=== PATIENT | female | born 1990 | race Hispanic/Latino ===

== ENCOUNTER 2018-02-21 12:06 | Emergency (ER) | payer BC, SELFPAY ==
[2018-02-21] MEDS ORDERED: ONDANSETRON 4 MG/2 ML VIAL ONE (12:53)
[2018-02-21 12:59] LABS: Absolute Lymphocytes (CBC) 1.3 K/uL (0.7-4.9); Absolute Monocytes 0.8 K/uL (0.1-1.3); Absolute Neutrophil 4.7 K/uL (1.8-8.0); Basophils % 0.6 % (0-1.3); Eosinophils % 2.8 % (0-4.4); Lymphocytes % 18.8 % (15.3-44.8); MCH 30.7 pg (27.0-35.0); MCV 89.5 fL (80-100); MPV 8.5 fL (7.6-11.3); RBC Red Blood Cell Count 4.47 M/uL (3.86-4.86)
[2018-02-21 13:16] LABS: ALT/SGPT 20 U/L (12-78); AST/SGOT 15 U/L (15-37); Albumin 3.6 g/dL (3.4-5.0); Alkaline Phosphatase 88 U/L (45-117); BUN Blood Urea Nitrogen 10 mg/dL (7-18); Bicarbonate 26 mmol/L (21-32); Bilirubin Direct 0.1 mg/dL (0-0.2); Bilirubin Total 0.3 mg/dL (0.2-1.0); Glucose Level 82 mg/dL (74-106); Lipase 108 U/L (73-393); Potassium 3.8 mmol/L (3.5-5.1); Protein, Total 7.7 g/dL (6.4-8.2); Sodium Level 140 mmol/L (136-145)
[2018-02-21 13:20] LABS: Urine Blood TRACE (NEG); Urine Glucose NEGATIVE (NEG); Urine Protein NEGATIVE (NEG); Urine Specific Gravity 1.015 (1.005-1.030)
--- NOTE | 2018-02-21 13:51 | ER ---
Nurse's Notes [facility] Name: Suni Field Age: 27 yrs Sex: Female : 1990 Arrival Date: 02/21/2018 Time: 12:07 Bed 25 Private MD: None, None Diagnosis: Vomiting Presentation: 02/21 12:11 Presenting complaint: Patient states: "Yesterday morning I woke up with body aches, aj1 nausea, I started vomiting this morning, fever of 101. I took Trent Back and Body this morning." Reports feeling bloated. Transition of care: patient was not received from another setting of care. Onset of symptoms was February 20, 2018. Risk Assessment: Do you want to hurt yourself or someone else? Patient reports no desire to harm self or others. Initial Sepsis Screen: Does the patient meet any 2 criteria? No. Patient's initial sepsis screen is negative. Does the patient have a suspected source of infection? No. Patient's initial sepsis screen is negative. Care prior to arrival: None. 12:11 Method Of Arrival: Ambulatory [facility] 12:11 Acuity: MARIA ISABEL 4 aj1 Triage Assessment: 12:16 General: Appears in no apparent distress. comfortable, Behavior is calm, cooperative, aj1 appropriate for age. Pain: Pain currently is 3 out of 10 on a pain scale. Neuro: Level of Consciousness is awake, alert, obeys commands. Cardiovascular: Patient's skin is warm and dry. Respiratory: Airway is patent Respiratory effort is even, unlabored, Respiratory pattern is regular, symmetrical. GI: Reports nausea, vomiting. 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 - Social history:: Smoking status: Patient/guardian denies using tobacco. - Ebola Screening: : Patient denies travel to an Ebola-affected area in the 21 days before illness onset. - Family history:: not pertinent. - Hospitalizations: : No recent hospitalization is reported. Screenin:30 Abuse screen: Denies threats or abuse. Nutritional screening: No deficits noted. tw2 Tuberculosis screening: No symptoms or risk factors identified. Fall Risk None identified. Assessment: 12:25 General: Appears in no apparent distress. well groomed, Behavior is calm, cooperative, tw2 appropriate for age. Neuro: Level of Consciousness is awake, alert, obeys commands, Oriented to person, place, time, situation. Cardiovascular: Denies chest pain, shortness of breath, Heart tones S1 S2 Patient's skin is warm and dry. Respiratory: Airway is patent Respiratory effort is even, unlabored, Respiratory pattern is regular, symmetrical, Breath sounds are clear bilaterally. GI: Abdomen is flat, Bowel sounds present X 4 quads. Reports nausea. GI: Patient currently denies abdominal pain. : No signs and/or symptoms were reported regarding the genitourinary system. EENT: No signs and/or symptoms were reported regarding the EENT system. Derm: No signs and/or symptoms reported regarding the dermatologic system. Musculoskeletal: No signs and/or symptoms reported regarding the musculoskeletal system. Range of motion: intact in all extremities. 12:25 GI: Reports indigestion. tw2 14:06 Reassessment: Patient appears in no apparent distress at this time. Patient and/or tw2 family updated on plan of care and expected duration. Pain level reassessed. Patient is alert, oriented x 3, equal unlabored respirations, skin warm/dry/pink. Patient states feeling better. Patient states symptoms have improved. Vital Signs: 12:16 BP 106 / 83; Pulse 84; Resp 18; Temp 97.1; Pulse Ox 99% on R/A; Weight 62.6 kg (R); aj1 Height 5 ft. 4 in. (162.56 cm) (R); Pain 3/10; 14:05 BP 106 / 67; Pulse 88; Resp 17; Pulse Ox 99% on R/A; tw2 12:16 Body Mass Index 23.69 (62.60 kg, 162.56 cm) aj1 ED Course: 12:07 Patient arrived in ED. sb2 12:08 None, None is Private Physician. sb2 12:16 Triage completed. aj1 12:16 Arm band placed on Patient placed in an exam room. aj1 12:23 Zaid Ludwig MD is Attending Physician. rn 12:30 Haritha Caceres RN is Primary Nurse. tw2 12:30 Bed in low position. Call light in reach. Pulse ox on. NIBP on. tw2 12:50 Inserted saline lock: 20 gauge in left antecubital area, using aseptic technique. Blood jp3 collected. 12:50 Initial lab(s) drawn, by me, sent to lab. Urine collected: clean catch specimen, clear, jp3 jonathon colored, Amount Voided: 80mL Flu and/or RSV swab sent to lab. Strep swab sent to lab. 12:54 [place] Screen Profile Sent. jp3 12:54 Urine --Ancillary (enter results) Sent. jp3 12:54 Urine Dipstick--Ancillary (enter results) Sent. jp3 12:54 Strep Sent. jp3 12:54 Flu Sent. jp3 12:54 Basic Metabolic Panel Sent. jp3 12:54 CBC with Diff Sent. jp3 12:54 Hepatic Function Sent. jp3 12:54 Lipase Sent. jp3 14:03 IV discontinued, intact, bleeding controlled, No redness/swelling at site. Pressure jp3 dressing applied. 14:06 No provider procedures requiring assistance completed. tw2 14:07 IV discontinued, per Mica Farmer. tw2 Administered Medications: 12:50 Drug: Zofran 4 mg Route: IVP; Site: left antecubital; tw2 14:06 Follow up: Response: No adverse reaction; Nausea is decreased tw2 Outcome: 13:50 Discharge ordered by . rn 14:06 Discharged to home ambulatory. tw2 14:06 Condition: stable 14:06 Discharge instructions given to patient, Instructed on discharge instructions, follow up and referral plans. medication usage, Demonstrated understanding of instructions, follow-up care, medications, Prescriptions given X 1. 14:07 Patient left the ED. tw2 Signatures: Kamila Jacobsen, RN RN aj1 Zaid Ludwig MD MD rn Wise, Tara, RN RN tw2 Leigh Espana Jacob jp3
--- NOTE | 2018-02-21 13:51 | EDPHYS ---
Physician Documentation [facility] Name: Suni Field Age: 27 yrs Sex: Female : 1990 Arrival Date: 02/21/2018 Time: 12:07 Bed 25 Private MD: None, None ED Physician Zaid Ludwig HPI: 02/21 13:46 This 27 yrs old Female presents to ER via Ambulatory with complaints of Fever, rn Nausea/Vomiting. 13:46 The patient reports fever, not measured (subjective). Onset: The symptoms/episode rn began/occurred 1 day(s) ago. Modifying factors: there are no obvious modifying factors. Associated signs and symptoms: Pertinent positives: myalgias, nausea, vomiting. Severity of symptoms: At their worst the symptoms were mild in the emergency department the symptoms have improved. The patient has not experienced similar symptoms in the past. Reports subjective fever, myalgias, fatigue, nausea, 1 episode of vomiting, no diarrhea, + abd cramping. NO cough/sob. . 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 - Social history:: Smoking status: Patient/guardian denies using tobacco. - Ebola Screening: : Patient denies travel to an Ebola-affected area in the 21 days before illness onset. - Family history:: not pertinent. - Hospitalizations: : No recent hospitalization is reported. 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 Exam: 13:46 Constitutional: This is a well developed, well nourished patient who is awake, alert, rn and in no acute distress. Head/Face: Normocephalic, atraumatic. Eyes: Pupils equal round and reactive to light, extra-ocular motions intact. Lids and lashes normal. Conjunctiva and sclera are non-icteric and not injected. Cornea within normal limits. Periorbital areas with no swelling, redness, or edema. ENT: Nares patent. No nasal discharge, no septal abnormalities noted. Oropharynx with no redness, swelling, or masses, exudates, or evidence of obstruction, uvula midline. Mucous membranes moist. Cardiovascular: Regular rate and rhythm with a normal S1 and S2. No pulse deficits. Respiratory: Lungs have equal breath sounds bilaterally, clear to auscultation. No increased work of breathing, no retractions or nasal flaring. Abdomen/GI: soft, non-tender, no rebound/guarding Skin: Warm, dry with normal turgor. Normal color with no rashes, no lesions, and no evidence of cellulitis. MS/ Extremity: Pulses equal, no cyanosis. Neurovascular intact. Full, normal range of motion. Equal circumference. Neuro: Awake and alert, GCS 15, oriented to person, place, time, and situation. Cranial nerves II-XII grossly intact. Motor strength 5/5 in all extremities. Sensory grossly intact. Cerebellar exam normal. Normal gait. Vital Signs: 12:16 BP 106 / 83; Pulse 84; Resp 18; Temp 97.1; Pulse Ox 99% on R/A; Weight 62.6 kg (R); aj1 Height 5 ft. 4 in. (162.56 cm) (R); Pain 3/10; 14:05 BP 106 / 67; Pulse 88; Resp 17; Pulse Ox 99% on R/A; tw2 12:16 Body Mass Index 23.69 (62.60 kg, 162.56 cm) aj1 MDM: 12:24 Patient medically screened. rn 13:46 Differential diagnosis: viral Infection, bacterial infection, URI, UTI, rn gastroenteritis. Data reviewed: vital signs, nurses notes, lab test result(s), and as a result, I will discharge patient. Counseling: I had a detailed discussion with the patient and/or guardian regarding: the historical points, exam findings, and any diagnostic results supporting the discharge/admit diagnosis, lab results, the need for outpatient follow up, to return to the emergency department if symptoms worsen or persist or if there are any questions or concerns that arise at home. Response to treatment: the patient's symptoms have markedly improved after treatment, and as a result, I will discharge patient. Special discussion: I discussed with the patient/guardian in detail that at this point there is no indication for admission to the hospital. It is understood, however, that if the symptoms persist or worsen the patient needs to return immediately for re-evaluation. ED course: Neg w/u here, most likely viral syndrome or enteritis, will dc home as abd exam benign, normal WBC, and no other etiology found, will dc with zofran and return precautions.. 02/21 12:35 Order name: Basic Metabolic Panel; Complete Time: 13:18 rn 02/21 12:35 Order name: CBC with Diff; Complete Time: 13:18 rn 02/21 12:35 Order name: Hepatic Function; Complete Time: 13:18 rn 02/21 12:35 Order name: Lipase; Complete Time: 13:18 rn 02/21 12:35 Order name: Flu; Complete Time: 13:42 rn 02/21 12:35 Order name: Strep; Complete Time: 13:42 rn 02/21 12:35 Order name: IV Saline Lock; Complete Time: 12:43 rn 02/21 12:35 Order name: Labs collected and sent; Complete Time: 12:44 rn 02/21 12:35 Order name: Urine Test (obtain specimen); Complete Time: 12:54 rn 02/21 12:38 Order name: Urine Dipstick--Ancillary (enter results); Complete Time: 13:42 bd 02/21 12:38 Order name: Urine --Ancillary (enter results); Complete Time: 13:42 bd 02/21 12:45 Order name: [place] Screen Profile; Complete Time: 13:42 rn 02/21 13:21 Order name: Throat Culture EDND 02/21 12:35 Order name: Urine Dipstick-Ancillary (obtain specimen); Complete Time: 12:54 rn Administered Medications: 12:50 Drug: Zofran 4 mg Route: IVP; Site: left antecubital; tw2 14:06 Follow up: Response: No adverse reaction; Nausea is decreased tw2 Disposition: 02/21/18 13:50 Discharged to Home. Impression: Vomiting. - Condition is Stable. - Discharge Instructions: Nausea and Vomiting, Adult, Viral Gastroenteritis, Adult. - Prescriptions for Zofran ODT 4 mg Oral tablet,disintegrating - place 1 tablet by TRANSLINGUAL route every 8 hours As needed followed by 2 additional 8 mg doses at 8 hour intervals; 20 tablet. - Medication Reconciliation Form, Thank You Letter, Antibiotic Education, Prescription Opioid Use, School release form, Work release form, Family Work Release form. - Follow up: Private Physician; When: As needed; Reason: Recheck today's complaints, Re-evaluation by your physician. - Problem is new. - Symptoms have improved. Signatures: Dispatcher [employer] EDKamila Hernandez RN RN aj1 Zaid Ludwig MD MD rn Wise, Tara, RN RN tw2 Corrections: (The following items were deleted from the chart) 14:07 13:50 02/21/2018 13:50 Discharged to Home. Impression: Vomiting. Condition is Stable. tw2 Forms are Medication Reconciliation Form, Thank You Letter, Antibiotic Education, Prescription Opioid Use. Follow up: Private Physician; When: As needed; Reason: Recheck today's complaints, Re-evaluation by your physician. Problem is new. Symptoms have improved. rn
[2018-02-21 14:27] VITALS: TEMP 97.1; O2SAT 99
[2018-02-21 14:28] VITALS: BP 106/67
== END 2018-02-21 14:07 | disposition home or self-care (01) ==
LOC: ER 12:06
DX: R11.10 Vomiting, unspecified (principal); Z91.013 Allergy to seafood
CPT/HCPCS: 36415; 80048; 80076; 81003; 81025; 83690; 85025; 86308; 87070; 87081; 87804; 96374; 99284; J2405

== ENCOUNTER 2019-06-10 07:59 | Emergency (ER) | payer SELFPAY ==
--- OUTSIDE RECORDS SUMMARY | 2019-06-10 08:15 | XMS REPORT ---
:1990 [facility] Address [address] [place] [address] [address] [place] [address] Care Team Providers Name Role Phone Unavailable Unavailable Unavailable Problems This patient has no known problems. Allergies, Adverse Reactions, Alerts This patient has no known allergies or adverse reactions. Medications This patient has no known medications.
[2019-06-10] MEDS ORDERED: ONDANSETRON 4 MG/2 ML VIAL ONE (08:42)
[2019-06-10] MEDS ORDERED: NA CHLORIDE 0.9% 1,000 ML ONE (08:42)
[2019-06-10 08:48] LABS: Absolute Lymphocytes (CBC) 1.6 K/uL (0.7-4.9); Basophils % 0.6 % (0-1.3); Hematocrit 40.9 % (36.0-45.0); Lymphocytes % 13.4 % (15.3-44.8); MPV 8.1 fL (7.6-11.3); RBC Red Blood Cell Count 4.33 M/uL (3.86-4.86)
[2019-06-10 09:13] LABS: ALT/SGPT 76 U/L (12-78); AST/SGOT 141 U/L (15-37); Albumin 3.8 g/dL (3.4-5.0); Alkaline Phosphatase 86 U/L (45-117); BUN Blood Urea Nitrogen 10 mg/dL (7-18); Bicarbonate 28 mmol/L (21-32); Bilirubin Direct 0.2 mg/dL (0-0.2); Bilirubin Total 0.8 mg/dL (0.2-1.0); Glucose Level 89 mg/dL (74-106); Lipase 69 U/L (73-393); Potassium 3.2 mmol/L (3.5-5.1); Protein, Total 8.3 g/dL (6.4-8.2); Sodium Level 138 mmol/L (136-145)
[2019-06-10 09:29] LABS: Urine Blood 2+ (NEG); Urine Glucose NEGATIVE (NEG); Urine Protein 2+ (NEG); Urine Specific Gravity >1.030 (1.005-1.030)
--- NOTE | 2019-06-10 09:42 | EDPHYS ---
Physician Documentation [facility] Name: Suni Field Age: 29 yrs Sex: Female : 1990 Arrival Date: 06/10/2019 Time: 08:03 Bed 7 Private MD: None, None ED Physician Ascencion Wilson HPI: 06/10 09:10 This 29 yrs old Female presents to ER via Ambulatory with complaints of kb Abdominal Pain, Vomiting/Diarrhea. 09:11 The patient presents to the emergency department with nausea, vomiting, diarrhea. kb Onset: The symptoms/episode began/occurred 3 day(s) ago. Possible causes: drank 1/2 bottle of vodka on Monday night. The symptoms are aggravated by nothing. The symptoms are alleviated by nothing. Associated signs and symptoms: Pertinent positives: diarrhea, nausea, vomiting, Pertinent negatives: abdominal pain, fever. Severity of symptoms: At their worst the symptoms were moderate in the emergency department the symptoms are unchanged. The patient has not experienced similar symptoms in the past. The patient has not recently seen a physician. Pt reports n/v/d since Monday. Reports she does not drink on a regular basis and drank 1/2 a bottle of vodka on Monday night so that could be the cause. . 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 - Coronavirus screen:: The patient has NOT traveled to [place] in the past 14 days. Proceed with normal triage process as indicated. - Social history:: Smoking status: Patient denies any tobacco usage or history of. - Ebola Screening: : Patient negative for fever greater than or equal to 101.5 degrees Fahrenheit, and additional compatible Ebola Virus Disease symptoms Patient denies exposure to infectious person Patient denies travel to an Ebola-affected area in the 21 days before illness onset No symptoms or risks identified at this time. ROS: 09:11 Constitutional: Negative for fever, chills, and weight loss, ENT: Negative for injury, kb pain, and discharge, Neck: Negative for injury, pain, and swelling, Cardiovascular: Negative for chest pain, palpitations, and edema, Respiratory: Negative for shortness of breath, cough, wheezing, and pleuritic chest pain, Back: Negative for injury and pain, : Negative for injury, bleeding, discharge, and swelling, MS/Extremity: Negative for injury and deformity, Skin: Negative for injury, rash, and discoloration, Neuro: Negative for headache, weakness, numbness, tingling, and seizure. 09:11 Abdomen/GI: Positive for nausea, vomiting, and diarrhea, Negative for abdominal pain. Exam: 09:11 Constitutional: This is a well developed, well nourished patient who is awake, alert, kb and in no acute distress. Head/Face: Normocephalic, atraumatic. ENT: Nares patent. No nasal discharge, no septal abnormalities noted. Tympanic membranes are normal and external auditory canals are clear. Oropharynx with no redness, swelling, or masses, exudates, or evidence of obstruction, uvula midline. Mucous membranes moist. Neck: Trachea midline, no thyromegaly or masses palpated, and no cervical lymphadenopathy. Supple, full range of motion without nuchal rigidity, or vertebral point tenderness. No Meningismus. Chest/axilla: Normal chest wall appearance and motion. Nontender with no deformity. No lesions are appreciated. Cardiovascular: Regular rate and rhythm with a normal S1 and S2. No gallops, murmurs, or rubs. Normal PMI, no JVD. No pulse deficits. Respiratory: Lungs have equal breath sounds bilaterally, clear to auscultation and percussion. No rales, rhonchi or wheezes noted. No increased work of breathing, no retractions or nasal flaring. Abdomen/GI: Soft, non-tender, with normal bowel sounds. No distension or tympany. No guarding or rebound. No evidence of tenderness throughout. Skin: Warm, dry with normal turgor. Normal color with no rashes, no lesions, and no evidence of cellulitis. MS/ Extremity: Pulses equal, no cyanosis. Neurovascular intact. Full, normal range of motion. Neuro: Awake and alert, GCS 15, oriented to person, place, time, and situation. Cranial nerves II-XII grossly intact. Motor strength 5/5 in all extremities. Sensory grossly intact. Cerebellar exam normal. Normal gait. Vital Signs: 08:10 BP 147 / 106; Pulse 90; Resp 16; Temp 98.4; Pulse Ox 98% on R/A; Weight 71.67 kg; iw Height 5 ft. 4 in. (162.56 cm); Pain 5/10; 09:15 BP 143 / 89; Pulse 69; Resp 16; Pulse Ox 96% ; sv 10:00 BP 126 / 91; Pulse 71; Resp 17; Pulse Ox 98% ; ah 08:10 Body Mass Index 27.12 (71.67 kg, 162.56 cm) iw MDM: 08:13 Patient medically screened. kb 09:14 Differential diagnosis: gastritis, viral gastroenteritis. Data reviewed: vital signs, kb nurses notes. Data interpreted: Pulse oximetry: on room air is 98 %. Interpretation: normal. 09:39 Counseling: I had a detailed discussion with the patient and/or guardian regarding: the kb historical points, exam findings, and any diagnostic results supporting the discharge/admit diagnosis, lab results, the need for outpatient follow up, a family practitioner, to return to the emergency department if symptoms worsen or persist or if there are any questions or concerns that arise at home. ED course: Pt reports nausea is resolved after zofran. Educated on gradual return to normal intake, starting with clear liquids. Verbal understanding received. . 06/10 08:30 Order name: Basic Metabolic Panel; Complete Time: 09:21 kb 06/10 08:30 Order name: CBC with Diff; Complete Time: 08:54 kb 06/10 08:30 Order name: Hepatic Function; Complete Time: : kb 06/10 08:30 Order name: Lipase; Complete Time: 09:21 kb 06/10 08:30 Order name: Urine --Ancillary (enter results); Complete Time: 09:35 kb 06/10 08:30 Order name: Urine Dipstick--Ancillary (enter results); Complete Time: 09:35 kb 06/10 08:30 Order name: IV Saline Lock; Complete Time: 09:00 kb 06/10 08:30 Order name: Labs collected and sent; Complete Time: 09:00 kb 06/10 09:22 Order name: PO challenge; Complete Time: 10:20 kb Administered Medications: 08:40 Drug: NS 0.9% 1000 ml Route: IV; Rate: 1000 ml; Site: right antecubital; hb 10:19 Follow up: Response: No adverse reaction; IV Status: Completed infusion; IV Intake: ah 1000ml 08:40 Drug: Zofran 4 mg Route: IVP; Site: right antecubital; hb 10:19 Follow up: Response: No adverse reaction 09:42 Drug: Potassium Chloride 40 mEq Route: PO; ah 10:19 Follow up: Response: No adverse reaction Disposition: 10:53 Co-signature as Attending Physician, Ascencion Wilson MD I agree with the assessment and kdr plan of care. Disposition: 06/10/19 09:41 Discharged to Home. Impression: Vomiting, Diarrhea, unspecified. - Condition is Stable. - Discharge Instructions: Food Choices to Help Relieve Diarrhea, Adult, Nausea and Vomiting, Adult, [id number], Diarrhea, Adult, [id number]. - Prescriptions for Zofran 4 mg Oral Tablet - take 1 tablet by ORAL route every 6 hours As needed; 20 tablet. - Work release form, Medication Reconciliation Form, Thank You Letter, Antibiotic Education, Prescription Opioid Use form. - Follow up: Emergency Department; When: As needed; Reason: Worsening of condition. Follow up: Private Physician; When: 2 - 3 days; Reason: Recheck today's complaints, Continuance of care, Re-evaluation by your physician. Signatures: Dispatcher [employer] EDMO Holly Moreno, SPANISH LANGUAGE LECTURER-C SPANISH LANGUAGE LECTURER-Ckb Ascencion Wilson MD MD [facility] Maddie Cruz RN RN Ellie Majano RN RN Aruna Lemon RN RN Corrections: (The following items were deleted from the chart) 10:25 09:41 06/10/2019 09:41 Discharged to Home. Impression: Vomiting; Diarrhea, unspecified. ah Condition is Stable. Forms are Medication Reconciliation Form, Thank You Letter, Antibiotic Education, Prescription Opioid Use. Follow up: Emergency Department; When: As needed; Reason: Worsening of condition. Follow up: Private Physician; When: 2 - 3 days; Reason: Recheck today's complaints, Continuance of care, Re-evaluation by your physician. kb
--- NOTE | 2019-06-10 09:42 | ER ---
Nurse's Notes [facility] Name: Suni Field Age: 29 yrs Sex: Female : 1990 Arrival Date: 06/10/2019 Time: 08:03 Bed 7 Private MD: None, None Diagnosis: Vomiting;Diarrhea, unspecified Presentation: 06/10 08:08 Presenting complaint: Patient states: nausea, vomiting all weekend, felt faint this iw morning, also has diarrhea. Transition of care: patient was not received from another setting of care. Onset of symptoms was June 07, 2019. Risk Assessment: Do you want to hurt yourself or someone else? Patient reports no desire to harm self or others. Initial Sepsis Screen: Does the patient meet any 2 criteria? No. Patient's initial sepsis screen is negative. Does the patient have a suspected source of infection? No. Patient's initial sepsis screen is negative. Care prior to arrival: None. 08:08 Method Of Arrival: Ambulatory iw 08:08 Acuity: MARIA ISABEL 3 iw RIVET SPINNER: 08:10 LMP 06/06/2019 iw Historical: - Allergies: 08:10 SHELLFISH; iw - Home Meds: 08:10 Zoloft 50 mg Oral tab 1 tab once daily [Active]; Hydroxyzine Oral as needed [Active]; iw - PMHx: 08:10 PMDD; iw - PSHx: 08:10 facial surgery; iw - Immunization history:: Adult Immunizations not up to date. - Coronavirus screen:: The patient has NOT traveled to [place] in the past 14 days. Proceed with normal triage process as indicated. - Social history:: Smoking status: Patient denies any tobacco usage or history of. - Ebola Screening: : Patient negative for fever greater than or equal to 101.5 degrees Fahrenheit, and additional compatible Ebola Virus Disease symptoms Patient denies exposure to infectious person Patient denies travel to an Ebola-affected area in the 21 days before illness onset No symptoms or risks identified at this time. Screenin:43 Abuse screen: Denies threats or abuse. Denies injuries from another. Nutritional sv screening: No deficits noted. Tuberculosis screening: No symptoms or risk factors identified. Fall Risk None identified. Assessment: 08:43 General: Appears uncomfortable, Behavior is cooperative, anxious, Smells of. Pain: ah Denies pain. Neuro: Level of Consciousness is awake, alert, Oriented to person, place, time, Annual Giving Director are equal bilaterally. Neuro: Reports headache dizziness. Cardiovascular: Heart tones S1 S2 present Capillary refill < 3 seconds Patient's skin is warm and dry. Respiratory: Airway is patent Respiratory effort is even, unlabored, Respiratory pattern is regular, symmetrical, Breath sounds are clear. GI: Abdomen is non-distended, Bowel sounds present X 4 quads. Abd is soft and non tender X 4 quads. Reports diarrhea, nausea, vomiting, since Monday morning Patient currently denies abdominal pain. : No signs and/or symptoms were reported regarding the genitourinary system. EENT: No signs and/or symptoms were reported regarding the EENT system. Derm: Skin is intact, is healthy with good turgor. Musculoskeletal: No signs and/or symptoms reported regarding the musculoskeletal system. 09:45 Reassessment: Patient appears in no apparent distress at this time. Patient and/or ah family updated on plan of care and expected duration. Pain level reassessed. Patient is alert, oriented x 3, equal unlabored respirations, skin warm/dry/pink. nausea has decreased Patient states feeling better. Vital Signs: 08:10 BP 147 / 106; Pulse 90; Resp 16; Temp 98.4; Pulse Ox 98% on R/A; Weight 71.67 kg; iw Height 5 ft. 4 in. (162.56 cm); Pain 5/10; 09:15 BP 143 / 89; Pulse 69; Resp 16; Pulse Ox 96% ; sv 10:00 BP 126 / 91; Pulse 71; Resp 17; Pulse Ox 98% ; ah 08:10 Body Mass Index 27.12 (71.67 kg, 162.56 cm) ED Course: 08:03 Patient arrived in ED. mr 08:03 None, None is Private Physician. mr 08:08 [facility] More[facility]-C [facility]. kb 08:08 Ascencion Wilson MD is Attending Physician. kb 08:10 Triage completed. iw 08:10 Arm band placed on. iw 08:41 Aruna Lemon, RN is Primary Nurse. ah 08:43 Patient has correct armband on for positive identification. Bed in low position. Call sv light in reach. Pulse ox on. NIBP on. Door closed. Head of bed elevated. 08:43 Inserted saline lock: 22 gauge in right antecubital area, using aseptic technique. 10:20 No provider procedures requiring assistance completed. IV discontinued, intact, bleeding controlled, No redness/swelling at site. Pressure dressing applied. Administered Medications: 08:40 Drug: NS 0.9% 1000 ml Route: IV; Rate: 1000 ml; Site: right antecubital; hb 10:19 Follow up: Response: No adverse reaction; IV Status: Completed infusion; IV Intake: ah 1000ml 08:40 Drug: Zofran 4 mg Route: IVP; Site: right antecubital; hb 10:19 Follow up: Response: No adverse reaction 09:42 Drug: Potassium Chloride 40 mEq Route: PO; ah 10:19 Follow up: Response: No adverse reaction ah Intake: 10:19 IV: 1000ml; Total: 1000ml. Outcome: 09:41 Discharge ordered by . kb 10:15 Discharged to home ambulatory. 10:15 Condition: good 10:15 Discharge instructions given to patient, Instructed on discharge instructions, medication usage, Demonstrated understanding of instructions, follow-up care, medications, Prescriptions given X 1. 10:25 Patient left the ED. Signatures: Holly Moreno, WHITE WASHER-C WHITE WASHER-Ckb Lexie Lock, RN Noreen Juárez Maddie Cruz RN RN iw Baxter, Heather, Aruna Marte RN RN HAIM
[2019-06-10] MEDS ORDERED: POTASSIUM CL SA 10 MEQ TAB PO ONE (09:43)
[2019-06-10 10:39] VITALS: TEMP 98.4
[2019-06-10 10:42] VITALS: BP 126/91; O2SAT 98
== END 2019-06-10 10:25 | disposition home or self-care (01) ==
LOC: ER 07:59
DX: R19.7 Diarrhea, unspecified (principal); Z91.013 Allergy to seafood
CPT/HCPCS: 36415; 80048; 80076; 81003; 81025; 83690; 85025; 96361; 96374; 99284; J2405; J7030

== ENCOUNTER 2022-03-08 09:06 | Emergency (ER) | payer SELFPAY ==
--- OUTSIDE RECORDS SUMMARY | 2022-03-08 09:09 | XMS REPORT | Continuity of Care Document ---
:1990 Author Organization [facility] t Address [address] [place] [address] Care Team Providers Name Role Phone SAMMI YOST Attending Clinician Unavailable SAMANTHA GRADY Attending Clinician Unavailable Payers Payer Name Policy Type Policy Number Effective Date Expiration Date S kindra MEDICAID PENDING PENDING 2020 00:00:00 [facility] - [id number] 2009 OUT OF STATE 00:00:00 Problems This patient has no known problems. Allergies, Adverse Reactions, Alerts Allergy Allergy Status Severity Reaction(s) Onset Inactive Treating Comm ents Source Name Type Date Date Clinician SHELLFIS DRUG Active ITCHING [facility]GR[facility] 10-03 ity of DERIVED 00:00: [address] Medications This patient has no known medications. Procedures This patient has no known procedures. Encounters Start End Encounter Admission Attending Care Care Encounter Source Date/Time Date/Time Type Type Clinicians Facility Department ID 2020-05-16 2020-05-16 Outpatient R [facility] [id number] Univers 11:40:00 11:40:00 SAMMI [facility] 2020-01-13 2020-01-13 Emergency X [facility] E[facility] [id number] [facility] 2020-01-06 Emergency X S[facility]ER [facility] ERT [id number] Univers 08:31:00 08:31:00 SAMANTHA [facility] Results This patient has no known results.
[2022-03-08 09:57] LABS: Absolute Lymphocytes (CBC) 1.9 K/uL (0.7-4.9); Hematocrit 40.8 % (36.0-45.0); Lymphocytes % 32.7 % (15.3-44.8); MPV 7.8 fL (7.6-11.3); RBC Red Blood Cell Count 4.34 M/uL (3.86-4.86)
[2022-03-08] MEDS ORDERED: FOLIC ACID 1 MG, THIAMINE HCL 100 MG, MULTIVITAMINS INJ 10 ML in NA CHLORIDE 0.9% 1,000 ML IV ONE (10:00)
[2022-03-08] MEDS ORDERED: FAMOTIDINE 20 MG/2 ML VIAL IV ONE (10:08)
[2022-03-08] MEDS ORDERED: ONDANSETRON 4 MG/2 ML VIAL ONE (10:08)
[2022-03-08] MEDS ORDERED: NA CHLORIDE 0.9% 250 ML ONE (10:08)
[2022-03-08 10:20] LABS: Albumin 3.6 g/dL (3.4-5.0); Bilirubin Total 0.6 mg/dL (0.2-1.0); Potassium 3.8 mmol/L (3.5-5.1); Protein, Total 8.2 g/dL (6.4-8.2)
[2022-03-08] MEDS ORDERED: KETOROLAC 30 MG/ML INJ ONE (11:08)
--- NOTE | 2022-03-08 11:43 | EDPHYS ---
Physician Documentation [facility] Name: Suni Fiedl Age: 31 yrs Sex: Female : 1990 Arrival Date: 03/08/2022 Time: 09:07 Bed 20 Private MD: Sean Patel T ED Physician Adrian Ozuna HPI: 03/08 09:27 This 31 yrs old Female presents to ER via Ambulatory with complaints of kb Vomiting. 09:27 The patient presents to the emergency department with nausea, vomiting, diarrhea. kb Onset: The symptoms/episode began/occurred last night. Possible causes: ETOH. The symptoms are aggravated by nothing. The symptoms are alleviated by nothing. Associated signs and symptoms: Pertinent positives: diarrhea, nausea, vomiting, Pertinent negatives: abdominal pain, fever. Severity of symptoms: At their worst the symptoms were moderate in the emergency department the symptoms are unchanged. The patient has not experienced similar symptoms in the past. The patient has not recently seen a physician. Pt reports n/v/d that began last night. States she drinks alcohol daily and drank more than normal last night. Reports this has happened in the past due to alcohol ingestion. Denies fever, abd pain. . Historical: - Allergies: 09:26 SHELLFISH; iw - Home Meds: 09:26 Zoloft 50 mg Oral tab 1 tab once daily [Active]; buspirone Oral as needed [Active]; iw - PMHx: 09:26 PMDD; iw - Immunization history:: Adult Immunizations. - Social history:: Smoking status: Patient uses alcohol, on a daily basis. ROS: 09:27 Constitutional: Negative for fever, chills, and weight loss. kb 09:27 Abdomen/GI: Positive for nausea, vomiting, and diarrhea, Negative for abdominal pain. 09:27 All other systems are negative. Exam: 09:27 Constitutional: This is a well developed, well nourished patient who is awake, alert, kb and in no acute distress. Head/Face: Normocephalic, atraumatic. ENT: Moist Mucous membranes Cardiovascular: Regular rate and rhythm with a normal S1 and S2. No gallops, murmurs, or rubs. No pulse deficits. Respiratory: Respirations even and unlabored. No increased work of breathing. Talking in full sentences Abdomen/GI: Soft, non-tender. No distention Skin: Warm, dry with normal turgor. Normal color. MS/ Extremity: Pulses equal, no cyanosis. Neurovascular intact. Full, normal range of motion. Neuro: Awake and alert, GCS 15, oriented to person, place, time, and situation. Moves all extremities. Normal gait. Vital Signs: 09:24 BP 137 / 106; Pulse 100; Resp 16; Temp 98.0; Pulse Ox 100% on R/A; Weight 74.39 kg; iw Height 5 ft. 4 in. (162.56 cm); 11:27 BP 149 / 102; Pulse 76; Resp 16; Pulse Ox 99% ; bp 12:11 BP 127 / 84; Pulse 74; Resp 16; Pulse Ox 99% ; bp 09:24 Body Mass Index 28.15 (74.39 kg, 162.56 cm) iw MDM: 09:26 Patient medically screened. kb 09:27 Data reviewed: vital signs, nurses notes. Data interpreted: Pulse oximetry: on room air kb is 100 %. Interpretation: normal. 10:57 Counseling: I had a detailed discussion with the patient and/or guardian regarding: the kb historical points, exam findings, and any diagnostic results supporting the discharge/admit diagnosis, lab results, the need for outpatient follow up, a family practitioner, to return to the emergency department if symptoms worsen or persist or if there are any questions or concerns that arise at home. Response to treatment: the patient's symptoms have markedly improved after treatment. 03/08 09:27 Order name: CBC with Diff; Complete Time: 10:05 kb 03/08 09:27 Order name: CMP; Complete Time: 10:24 kb 03/08 09:27 Order name: Lipase; Complete Time: 10:24 kb 03/08 09:27 Order name: IV Saline Lock; Complete Time: 09:39 kb 03/08 09: Order name: Labs collected and sent; Complete Time: 09:39 kb 03/08 10:57 Order name: PO challenge; Complete Time: 11:34 kb Administered Medications: 09:50 Drug: Pepcid (famotidine) 20 mg Route: IVP; Site: right antecubital; bp 11:34 Follow up: Response: No adverse reaction bp 09:50 Drug: Zofran (Ondansetron) 4 mg Route: IVP; Site: right antecubital; bp 11:34 Follow up: Response: No adverse reaction bp 10:15 Drug: Banana Bag - (NS 0.9% 1000 ml, foLIC Acid 1 mg, Thiamine 100 mg, Multivitamin 1 bp amp) Route: IV; Rate: calculated rate; Site: right antecubital; 11:34 Follow up: IV Status: Completed infusion; IV Intake: 1000ml bp 11:13 Drug: Ketorolac 15 mg Route: IVP; Site: right antecubital; bp 11:34 Follow up: Response: No adverse reaction bp Disposition: 16:54 Co-signature as Attending Physician, Adrian Ozuna MD I agree with the assessment and rt plan of care. Disposition Summary: 03/08/22 11:43 Discharge Ordered Location: Home kb Condition: Stable kb Diagnosis - Nausea with vomiting, unspecified kb Followup: kb - With: Emergency Department - When: As needed - Reason: Worsening of condition Followup: kb - With: Private Physician - When: 2 - 3 days - Reason: Recheck today's complaints, Continuance of care, Re-evaluation by your physician Discharge Instructions: - Discharge Summary Sheet kb - Nausea and Vomiting, Adult, [id number] kb Forms: - Medication Reconciliation Form kb - Thank You Letter kb - Antibiotic Education kb - Prescription Opioid Use kb Prescriptions: - ondansetron 4 mg Oral tablet,disintegrating - place 1 tablet by TRANSLINGUAL route every 6 hours As needed; 10 tablet; kb Refills: 0, Product Selection Permitted Signatures: Dispatcher [employer] Holly Horton, TONNY BOSTON-Maddie Chilel, Steve Apodaca RN, RN RN Adrian Watkins MD MD rt
--- NOTE | 2022-03-08 11:43 | ER ---
Nurse's Notes [facility] Name: Suni Field Age: 31 yrs Sex: Female : 1990 Arrival Date: 03/08/2022 Time: 09:07 Bed 20 Private MD: Sean Patel T Diagnosis: Nausea with vomiting, unspecified Presentation: 03/08 09:24 Chief complaint: Patient states: vomiting last night, diarrhea, no abd or fever , was iw drinking last night, has had similar symptoms in past. Coronavirus screen: At this time, the client does not indicate any symptoms associated with coronavirus-19. Ebola Screen: Patient negative for fever greater than or equal to 101.5 degrees Fahrenheit, and additional compatible Ebola Virus Disease symptoms Patient denies exposure to infectious person. Patient denies travel to an Ebola-affected area in the 21 days before illness onset. No symptoms or risks identified at this time. Initial Sepsis Screen: Does the patient meet any 2 criteria? No. Patient's initial sepsis screen is negative. Does the patient have a suspected source of infection? No. Patient's initial sepsis screen is negative. Risk Assessment: Do you want to hurt yourself or someone else? Patient reports no desire to harm self or others. Onset of symptoms was March 08, 2022. 09:24 Method Of Arrival: Ambulatory iw 09:24 Acuity: MARIA ISABEL 3 iw Triage Assessment: 09:30 General: Appears distressed, uncomfortable, Behavior is cooperative, appropriate for bp age, anxious. Pain: Complains of pain in abdomen. EENT: No deficits noted. Neuro: No deficits noted. Cardiovascular: No deficits noted. Respiratory: No deficits noted. GI: Reports nausea, vomiting. : No signs and/or symptoms were reported regarding the genitourinary system. Derm: No deficits noted. Musculoskeletal: No deficits noted. Historical: - Allergies: 09: SHELLFISH; iw - Home Meds: : Zoloft 50 mg Oral tab 1 tab once daily [Active]; buspirone Oral as needed [Active]; iw - PMHx: : PMDD; iw - Immunization history:: Adult Immunizations. - Social history:: Smoking status: Patient uses alcohol, on a daily basis. Screenin:30 Abuse screen: Denies threats or abuse. Denies injuries from another. Nutritional bp screening: No deficits noted. Tuberculosis screening: No symptoms or risk factors identified. Fall Risk None identified. Assessment: 09:30 General: SEE TRIAGE NOTE. bp 11:30 Reassessment: PO CHALLENGE SUCCESSFUL. GI: Abdomen is non-distended. bp 12:11 Reassessment: DC HOME WITH FAMILY. bp Vital Signs: 09:24 BP 137 / 106; Pulse 100; Resp 16; Temp 98.0; Pulse Ox 100% on R/A; Weight 74.39 kg; iw Height 5 ft. 4 in. (162.56 cm); 11:27 BP 149 / 102; Pulse 76; Resp 16; Pulse Ox 99% ; bp 12:11 BP 127 / 84; Pulse 74; Resp 16; Pulse Ox 99% ; bp 09:24 Body Mass Index 28.15 (74.39 kg, 162.56 cm) iw ED Course: 09:07 Patient arrived in ED. as 09:07 Sean Patel MD is Private Physician. as 09:12 Holly Moreno FNP-C [facility]. kb 09:12 Adrian Ozuna MD is Attending Physician. kb 09:26 Triage completed. iw 09:26 Arm band placed on. iw 09:30 Patient has correct armband on for positive identification. Bed in low position. Call bp light in reach. Side rails up X2. Adult w/ patient. 09:39 Steve Mahajan, RN is Primary Nurse. bp 09:40 Inserted saline lock: 20 gauge in right antecubital area, using aseptic technique. bp Blood collected. 12:11 No provider procedures requiring assistance completed. IV discontinued, intact, bp bleeding controlled, No redness/swelling at site. Pressure dressing applied. Administered Medications: 09:50 Drug: Pepcid (famotidine) 20 mg Route: IVP; Site: right antecubital; bp 11:34 Follow up: Response: No adverse reaction bp 09:50 Drug: Zofran (Ondansetron) 4 mg Route: IVP; Site: right antecubital; bp 11:34 Follow up: Response: No adverse reaction bp 10:15 Drug: Banana Bag - (NS 0.9% 1000 ml, foLIC Acid 1 mg, Thiamine 100 mg, Multivitamin 1 bp amp) Route: IV; Rate: calculated rate; Site: right antecubital; 11:34 Follow up: IV Status: Completed infusion; IV Intake: 1000ml bp 11:13 Drug: Ketorolac 15 mg Route: IVP; Site: right antecubital; bp 11:34 Follow up: Response: No adverse reaction bp Medication: 12:11 VIS not applicable for this client. bp Intake: 11:34 IV: 1000ml; Total: 1000ml. bp Outcome: 11:43 Discharge ordered by MD. lopez 12:11 Discharged to home via wheelchair, with family. bp 12:11 Condition: stable 12:11 Discharge instructions given to patient, Instructed on discharge instructions, follow up and referral plans. medication usage, Demonstrated understanding of instructions, follow-up care, medications, Prescriptions given X 1. 12:13 Patient left the ED. bp Signatures: Holly Moreno, DARVIN-Virgilio ALDRICHP-Mariah Hamilton Irene, RN RN iw Steve Mahajan RN RN bp Corrections: (The following items were deleted from the chart) 09:27 09:24 Pulse 100bpm; Resp 16bpm; Pulse Ox 100% RA; Temp 98.0F; iw iw
[2022-03-08 12:17] VITALS: TEMP 98
[2022-03-08 12:18] VITALS: O2SAT 99
[2022-03-08 12:19] VITALS: BP 127/84
== END 2022-03-08 12:13 | disposition home or self-care (01) ==
LOC: ER 09:06
DX: R11.2 Nausea with vomiting, unspecified (principal)
CPT/HCPCS: 36415; 80053; 83690; 85025; 96365; 96375; 99284; J2405; J3411; J7030; J7050

== ENCOUNTER 2022-06-18 21:20 | Emergency (ER) | payer OTHER ==
--- OUTSIDE RECORDS SUMMARY | 2022-06-18 21:24 | XMS REPORT | Continuity of Care Document ---
:1990 Author Organization [facility] t Address [address] [place] [address] Care Team Providers Name Role Phone SAMMI YOST Attending Clinician Unavailable SAMANTHA GRADY Attending Clinician Unavailable Payers Payer Name Policy Type Policy Number Effective Date Expiration Date S kindra MEDICAID PENDING PENDING 2020 00:00:00 [facility] - [id number] 2009 OUT OF STATE 00:00:00 Problems This patient has no known problems. Allergies, Adverse Reactions, Alerts Allergy Allergy Status Severity Reaction(s) Onset Inactive Treating Comm ents Source Name Type Date Date Clinician SHELLFIS DRUG Active ITCHING [facility] INGREDI - ity of DERIVED 00:00: [address] Medications This patient has no known medications. Procedures This patient has no known procedures. Encounters Start End Encounter Admission Attending Care Care Encounter Source Date/Time Date/Time Type Type Clinicians Facility Department ID 2020-05-16 2020-05-16 Outpatient R [facility] [id number] Univers 11:40:00 11:40:00 SAMMI [facility] 2020-01-13 2020-01-13 Emergency X [facility] E[facility] [id number] Univers [facility]-01-06 Emergency X S[facility]ER [facility] ERT [id number] Univers 08:31:00 08:31:00 SAMANTHA [facility] Results This patient has no known results.
--- NOTE | 2022-06-18 21:57 | ER ---
Nurse's Notes [facility] Name: Suni Field Age: 32 yrs Sex: Female : 1990 Arrival Date: 06/18/2022 Time: 21:23 Bed Waiting Private MD: Diagnosis: ED Course: 06/18 21:23 Patient arrived in ED. jj6 21:43 Bunny Kurtz PA is PHCP. cp 21:43 oRberto Multani MD is Attending Physician. cp Administered Medications: No medications were administered Outcome: 21:57 Patient left the ED. kd3 Signatures: Bunny Kurtz PA PA cp Jeffries, Jennifer jj6 Abbey Pittman RN RN kd3
== END 2022-06-18 21:57 | disposition left against medical advice (07) ==
LOC: ER 21:20
DX: Z02.9 Encounter for administrative examinations, unspecified (principal)